=== PATIENT | female | born 1965 | race Caucasian/White ===

== ENCOUNTER 2020-07-22 07:30 | Emergency (ER) | payer SELFPAY ==
[2020-07-22 07:31] VITALS: BP 114/80; PULSE 92; RESP 16; TEMP 36; O2SAT 98; BMI 24.6
--- NOTE | 2020-07-22 07:45 | NURSING ---
NO OLD EKGS
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
--- NOTE | 2020-07-22 08:07 | NURSING ---
Pt refusing any testing at this time. Dr. Pino at bedside and aware.
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
== END 2020-07-22 12:01 | disposition home or self-care (01) ==
PROVIDERS: Emergency Provider Emergency Medicine
DX: F22 Delusional disorders (principal)
CPT/HCPCS: 99282